=== PATIENT | male | born 1960 | race Caucasian/White ===

== ENCOUNTER 2023-03-06 06:29 | Observation (INO) ==
[~2023-03-06 06:29] MED LIST: Buffered Lidocaine 1% SYRIN 1 ml INTRADERM ONE; HYDROcodone/ACETAMIN 5/325 mg TAB PO PRN; Lactated Ringers 1000 ml BAG 1,000 ML IV SCH; Metoclopramide 5 MG/ML VIAL (10 mg) IV PRN; Naloxone 0.4 mg VIAL 0.4 mg/ml 1 ml VIAL IV PRN; Ondansetron 4 mg VIAL 2 MG/ML 2 ml VIAL IV PRN; fentaNYL 100 mcg/2 ml 50 MCG/ML VIAL IV PRN
[2023-03-06] MEDS ORDERED: ROPIVACAINE 5 MG/ML 30 ML BTL (0.5%) ONE ×2 (07:17→12:47)
[2023-03-06] MEDS ORDERED: ceFAZolin 2 GM PREMIX 2 GM/50 ML BAG ONE (07:42)
[2023-03-06 08:25] LABS: Rapid COVID-19 Molecular Undetected (Undetected)
[2023-03-06] MEDS ORDERED: Lidocaine 2% PF 5 ML VIAL ONE (09:18)
[2023-03-06] MEDS ORDERED: Propofol 10 MG/ML 20 ML BTL ONE (09:18)
[2023-03-06] MEDS ORDERED: Midazolam 2 mg/2 ml VIAL 1 mg/ml 2 ml VIAL (2 mg) ONE (09:19)
[2023-03-06] MEDS ORDERED: fentaNYL 250 mcg/5 ml 50 MCG/ML 5 ml VIAL (250 MCG) ONE (09:19)
[2023-03-06] MEDS ORDERED: Rocuronium 50 mg VIAL 10 mg/ml 5 ml VIAL (50 mg) ONE (09:19)
[2023-03-06] MEDS ORDERED: Ketamine HCL 50 mg/ml 10 ml VIAL (500 MG) ONE (10:21)
[2023-03-06] MEDS ORDERED: HYDROmorphone 0.5 MG/0.5 ML SYRINGE ONE (10:43)
[2023-03-06] MEDS ORDERED: HYDROcodone/ACETAMIN 5/325 mg TAB ONE (12:08)
[2023-03-06] MEDS ORDERED: Magnesium Hydroxide LIQ 30 ML UDC PO PRN (12:37)
[2023-03-06] MEDS ORDERED: Morphine 2 MG/ML SYRINGE IV PRN (12:37)
[2023-03-06] MEDS ORDERED: Ondansetron 4 mg VIAL 2 MG/ML 2 ml VIAL IV PRN (12:37)
[2023-03-06] MEDS ORDERED: Ondansetron ODT 4 mg TAB 4 MG TAB PO PRN (12:37)
[2023-03-06] MEDS ORDERED: Lactulose 30 ml UDC PO PRN (12:37)
[2023-03-06] MEDS ORDERED: Lactated Ringers 1000 ml BAG 1,000 ML IV SCH (13:00)
[2023-03-06] MEDS ORDERED: ceFAZolin 1 GM ADVAN 1 GM in NS 0.9% 50 ML 50 ML IVPB SCH (18:30)
[2023-03-06] MEDS ORDERED: Magnesium Hydroxide LIQ 30 ML UDC PO SCH (21:00)
[2023-03-07] MEDS ORDERED: Vitamin THERAPEUTIC TAB PO SCH (09:00)
== END 2023-03-06 18:45 | disposition home or self-care (01) ==
LOC: OR 06:29 → SSU 06:29 → EDSTATUS 09:15
PROVIDERS: ADMIT Orthopaedic Surgery Adult Reconstructive Orthopaedic Surgery; ATTEND Orthopaedic Surgery Adult Reconstructive Orthopaedic Surgery